=== PATIENT | female | born 1955 | race Caucasian/White ===

== ENCOUNTER → 2018-03-02 13:18 | Outpatient (CLI) | payer BC, SELFPAY ==
--- NOTE | 2018-03-02 13:23 | XR_ITS ---
XR chest 2V HISTORY: ITS.REASON: cough ORDERING PHYSICIAN: Fredi Cordova PATIENT AGE: 62 years COMPARISON: None FINDINGS: The cardiomediastinal silhouette and pulmonary vascularity are within normal limits. There is a 1 cm nodular opacity overlying the left perihilar region. While this could be due to a granuloma or vessel, one cannot exclude the possibility of a developing hilar nodule. Recommend old films for comparison if available. If no old films are available then CT scan of the chest without contrast value. There are degenerative changes in the thoracic spine. No lobar consolidation or collapse. IMPRESSION: 1. 1 cm left perihilar nodular opacity. Consider chest CT for further evaluation if no old films are available. 2. Otherwise negative
== END ==
PROVIDERS: PCP Emergency Medicine; Visit Provider Nurse Practitioner Family
DX: R05 Cough (principal)
CPT/HCPCS: 71046

== ENCOUNTER 2020-08-05 15:36 | Emergency (ER) | payer BC, SELFPAY ==
[2020-08-05 15:37] VITALS: PULSE 87; RESP 16; O2SAT 98; BMI 35.7
[2020-08-05 15:50] VITALS: BP 241/128; PULSE 116; RESP 18; O2SAT 96; BMI 41.5
--- NOTE | 2020-08-05 16:25 | HMH.EDEPIS ---
ED Disposition Clinical Impression: Epistaxis Disposition: Home, Self-Care Condition on Discharge: Good Instructions: DI for Nosebleed Referrals: Daron Duque MD [Primary Care Provider] - - Critical Care Critical Care Time: No Attestation: On 08/05/20, the high probability of a clinically significant, sudden or life threatening deterioration of the following system(s) required my full and direct attention, intervention and personal management. The time I documented below is in addition to time spent performing reported procedures but includes the following listed in this critical care notation. Medical Decision Making - Medical Records Medical records reviewed: Yes: I reviewed the patient's medical records. - Jem Inquiry Pt receiving controlled substance: No Vital Signs: 08/05/20 15:37 08/05/20 15:50 Pulse Rate [Left Brachial] 116 H Pulse Rate [Right] 87 Respiratory Rate 16 18 Blood Pressure [Left Arm] 241/128 H Blood Pressure Mean [Left Arm] 165 Blood Pressure Source [Left Arm] Automatic Cuff Blood Pressure Position [Left Arm] Sitting 02 Sat by Pulse Oximetry 98 96 Oxygen Delivery Method Room Air Room Air Orders (Tests/Meds): ED MEDICATIONS Discontinued Medications Generic Name Dose Route Start Last Admin Trade Name Freq PRN Reason Stop Dose Admin Oxymetazoline HCl 5 ml 08/05/20 15:58 08/05/20 16:32 Oxymetazoline Nasal Norton 0.05% 15ml NS 08/05/20 15:59 1 spray ONCE ONE Administration - Reevaluation(s) Time: 16:51 Reevaluation #1: On reevaluation, the patient is feeling much better. Is been no evidence of rebleeding. I did instruct the patient on what to do if she has bleeding again. Reexamination does not show any posterior bleed or active bleeding. If she is to have any worsening bleeding she is to return the emergency department immediately. Verbalized understanding. Medical Decision Narrative: 64-year-old female presented to the emergency department with epistaxis. Appears to be anterior bleeding. We did clear the patient's naris. Applied Afrin nasal spray. Compression was applied. Patient will be reevaluated. Epistaxis HPI - General Chief complaint: Epistaxis Stated complaint: Nose Bleed Time Seen by Provider: 08/05/20 15:40 Mode of Arrival: Ambulatory Source of Information: Patient Limitations: No Limitations Description of Symptoms (Recalled from ER Triage Doc. by RN): PATIENT C/O NOSE BLEED FROM LEFT NOSTRIL SINCE THIS MORNING. STATES IT HAS BEEN WORSE OVER THE PAST HOUR. ACTIVE BLEEDING FROM NOSE NOTED AT THIS TIME - History of Present Illness HPI Narrative: 64-year-old female presented to the emergency department with a nosebleed. The patient states that she was driving in her car earlier today when she felt her nose started to run. She noticed some bleeding from the left side of her nose. Patient does not take any anticoagulation. She denies any trauma to the nose. She states that she has been blowing her nose lately secondary to some congestion. Denies any headache or change in vision. No focal weakness. Abdominal pain or vomiting. No chest pain or shortness of breath. - Related Data Home Medications Medication Instructions Recorded Confirmed diltiazem HCl 240 mg capsule,24 240 mg PO QAM 12/16/17 06/24/19 hr,extended release trazodone 50 mg tablet 50 mg PO QHS PRN 12/16/17 06/24/19 hydrochlorothiazide 25 mg tablet 25 mg PO DAILY 06/24/19 06/24/19 Allergies Allergy/AdvReac Type Severity Reaction Status Date / Time No Known Allergies Allergy Verified 06/24/19 11:20 [facility] History - Hepatitis A Screen Drug use history?: No High risk sexual behaviors?: No History of sexually transmitted infection?: No Currently employed?: No Childcare worker?: No Do you have indoor plumbing?: Yes Do you have electricity?: Yes Attestation statement:: This patient has been screened for Hepatitis A risk factors. I h
--- NOTE | 2020-08-05 16:47 | PC.NURSE ---
Pt sitting in chair. Nose has stopped bleeding at this time after afrin and pressure. Will continue to monitor
[2020-08-05 17:16] VITALS: BP 190/100; PULSE 100; RESP 18; TEMP 36.6; O2SAT 98
== END 2020-08-05 17:17 | disposition home or self-care (01) ==
LOC: ER 15:43 → UTC 15:45 → ER 15:51
PROVIDERS: Emergency Provider Nurse Practitioner Family; PCP Emergency Medicine
DX: R04.0 Epistaxis (principal)
CPT/HCPCS: 99282

== ENCOUNTER 2021-02-22 16:48 | Emergency (ER) | payer BC, SELFPAY ==
--- NOTE | 2021-02-22 16:45 | ECG_ITS ---
APPROVED REPORT Exam: Resting ECG HR:90 bpm ECG Measurements Heart Rate 90 AXES RI 194 P 44 QRSd 88 QRS 22 QT 390 T 51 QTc 477 Conclusion Normal sinus rhythm Nonspecific T wave abnormality Prolonged QT Abnormal ECG Electronically signed by : Shmuel Montelongo MD 02/23/2021 07:57:06
[2021-02-22 16:49] VITALS: BP 179/91; PULSE 85; RESP 15; TEMP 37.2; O2SAT 96; BMI 36.6
--- NOTE | 2021-02-22 16:59 | XR_ITS ---
PROCEDURE INFORMATION: Exam: XR Chest Exam date and time: 02/22/2021 4:59 PM Age: 65 years old Clinical indication: Pain; Chest pressure; Additional info: Cp TECHNIQUE: Imaging protocol: XR of the chest. Views: 1 view. COMPARISON: CR CXR2V XR chest 2V 03/02/2018 1:28 PM FINDINGS: Lungs: Subtle bibasilar opacities are seen. No focal consolidation. Pleural spaces: Unremarkable. No pleural effusion. No pneumothorax. Heart/Mediastinum: Unremarkable. No cardiomegaly. Bones/joints: Unremarkable. IMPRESSION: Subtle bibasilar opacities could represent inflammation or atelectasis.
--- NOTE | 2021-02-22 17:00 | HMH.EDCP ---
ED Disposition Clinical Impression: Chest pain Qualifiers: Chest pain type: unspecified Qualified Code(s): R07.9 - Chest pain, unspecified Pneumonia Qualifiers: Pneumonia type: due to unspecified organism Laterality: bilateral Disposition: Home, Self-Care Condition on Discharge: Good Instructions: DI for Atypical Chest Pain Additional Instructions: Please follow-up with your primary care physician within the next week. I recommend that you undergo a cardiac stress test. Your work-up today did not show any evidence of heart attack. However, I am unable to determine whether your heart is in healthy condition. Therefore I recommend a stress test. Please return to the emergency department if you do not improve or feel worse. Prescriptions: Azithromycin [Zithromax 250mg tab] 250 mg PO DIRECTED #6 tab Transmission Status: Pending to [facility] #[id number] - Critical Care Critical Care Time: No Attestation: On , the high probability of a clinically significant, sudden or life threatening deterioration of the following system(s) required my full and direct attention, intervention and personal management. The time I documented below is in addition to time spent performing reported procedures but includes the following listed in this critical care notation. Medical Decision Making - Medical Records Medical records reviewed: Yes: I reviewed the patient's medical records. - Jem Inquiry Pt receiving controlled substance: No Vital Signs: 02/22/21 16:49 02/22/21 17:01 Temperature 98.9 F Temperature Source Oral Pulse Rate 86 Pulse Rate [Left Radial] 85 Respiratory Rate 15 20 Blood Pressure 141/80 H Blood Pressure [Right Arm] 179/91 H Blood Pressure Mean 104 Blood Pressure Mean [Right Arm] 120 Blood Pressure Source [Right Arm] Automatic Cuff Blood Pressure Position [Right Arm] Sitting 02 Sat by Pulse Oximetry 96 93 L Oxygen Delivery Method Room Air - Lab Data Lab results reviewed: Yes: I reviewed the patient's lab results. Lab Results 02/22/21 16:50: WBC 11.1 H, RBC 5.23, Hgb 14.5, Hct 42.5, MCV 81.2, MCH 27.7, MCHC 34.2, RDW 14.2, Plt Count 334, MPV 7.7, Neut % (Auto) 70.6, Lymph % (Auto) 21.6, Caldwell % (Auto) 6.1, Eos % (Auto) 1.1, Baso % (Auto) 0.7, Neut # (Auto) 7.8, Lymph # (Auto) 2.4, Caldwell # (Auto) 0.7, Eos # (Auto) 0.1, Baso # (Auto) 0.1 02/22/21 16:50: Sodium 138, Potassium 3.2 L, Chloride 98, Carbon Dioxide 28, Anion Gap 15.2 H, BUN 15, Creatinine 1.20 H, Estimated Creat Clear 75, Estimated GFR 45 L, Est GFR ( Amer) 55 L, Glucose 99, Calcium 9.5, Total Bilirubin 0.6, AST 45 H, ALT 39, Alkaline Phosphatase 109, Troponin I < 0.01, Total Protein 8.3 H, Albumin 4.7, Globulin 3.6 H, Albumin/Globulin Ratio 1.3 Result diagrams: 02/22/21 16:50 02/22/21 16:50 Orders (Tests/Meds): ED MEDICATIONS Discontinued Medications Generic Name Dose Route Start Last Admin Trade Name Freq PRN Reason Stop Dose Admin Aspirin 324 mg 02/22/21 17:02 Aspirin 81mg Chewable Tablet PO 02/22/21 17:03 ONCE ONE ORDERS Category Date Time Status Troponin I Q3H Lab 02/22/21 20:00 Ordered - ECG Data Tracing #1 I reviewed this ECG and interpreted as documented below: The ECG was performed at 1645. It shows a normal sinus rhythm with a rate of 90 bpm. Is artifact present. Flattened T waves in leads III and V2. Otherwise the ECG does not show any acute ischemia or dysrhythmia. The axis are normal. Normal Sinus Rhythm: Yes - JENNIFER Score for Non-Stemi Age of Patient: 60-69 years old Heart Rate: 90-109 bpm Systolic Blood Pressure: 160-199 mmHg Serum Creatinine: 0.80-1.19 mg/dl CHF Killip Class: I-No CHF Other Risk Factors: None Non-Stemi Risk Score: 90 Medical Decision Narrative: The patient presents to the emergency department complaining of intermittent sharp chest pains that last a few seconds at a time. She was worked up for dangerous causes of chest p
[2021-02-22 17:01] VITALS: BP 141/80; PULSE 86; RESP 20; O2SAT 93
[2021-02-22 17:12] LABS: Basophils # 0.1 K/mm3 (0-0.2); Basophils % 0.7 % (0.1-2.0); Chloride 98 mmol/L (98-107); Eosinophils # 0.1 K/mm3 (0.0-0.4); Eosinophils % 1.1 % (0.1-12.0); Hematocrit 42.5 % (37.0-47.0); Hemoglobin 14.5 g/dL (12.2-16.2); Lymphocytes # 2.4 K/mm3 (0.7-4.5); Lymphocytes % 21.6 % (10-50); Mean Corpuscular HGB Conc 34.2 g/dL (31.8-35.4); Mean Corpuscular Hemoglobin 27.7 pg (27.0-31.2); Mean Corpuscular Volume 81.2 fl (81-99); Mean Platelet Volume 7.7 fl (7.4-10.4); Monocytes # 0.7 K/mm3 (0.1-1.0); Monocytes % 6.1 % (1.7-9.3); Neutrophils # 7.8 K/mm3 (1.8-7.8); Neutrophils % 70.6 % (37.0-80.0); Platelet Count 334 K/mm3 (142-424); Red Blood Count 5.23 M/mm3 (4.20-5.40); Red Cell Distribution Width 14.2 % (11.5-17.5); White Blood Count 11.1 K/mm3 (4.8-10.8)
[2021-02-22 17:13] LABS: Potassium 3.2 mmoL/L (3.5-5.1); Sodium 138 mmol/L (136-145)
[2021-02-22 17:15] LABS: Alanine Aminotransferase 39 U/L (12-78); Aspartate Amino Transferase 45 U/L (14-36); Blood Urea Nitrogen 15 mg/dl (7-17); Creatinine Clearance Estimated 75 mL/min (50-200); Estimated Glomerular Filt Rate 45 ml/min (>60); GFR (African American) 55 ML/MIN (>60)
[2021-02-22 17:16] LABS: Albumin Level 4.7 g/dl (3.5-5.0); Albumin/Globulin Ratio 1.3 (1.1-1.8); Alkaline Phosphatase 109 U/L (38-126); Anion Gap 15.2 mEq/L (5-15); Bilirubin,Total 0.6 mg/dl (0.2-1.3); Calcium 9.5 mg/dl (8.4-10.2); Carbon Dioxide 28 mmol/L (22.0-30.0); Globulin 3.6 g/dL (1.3-3.2); Glucose 99 mg/dl (74-100); Total Protein,Serum 8.3 g/dl (6.3-8.2)
[2021-02-22 17:29] LABS: Troponin I < 0.01 ng/ml (0.00-0.034)
[2021-02-22 18:39] VITALS: BP 124/78; PULSE 74; RESP 16; TEMP 36.6; O2SAT 98
== END 2021-02-22 18:43 | disposition home or self-care (01) ==
PROVIDERS: Emergency Provider Emergency Medicine; PCP Nurse Practitioner Family
DX: J18.9 Pneumonia, unspecified organism (principal); I10 Essential (primary) hypertension
CPT/HCPCS: 71045; 80053; 84484; 85025; 93005; 99282

== ENCOUNTER → 2021-06-04 12:14 | Outpatient (CLI) | payer BC, SELFPAY | PROVIDERS: PCP Nurse Practitioner Family; Visit Provider Nurse Practitioner Family | DX: G47.33 Obstructive sleep apnea (adult) (pediatric) (principal); R06.83 Snoring | CPT/HCPCS: G0399 ==

== ENCOUNTER → 2022-04-16 06:50 | Outpatient (CLI) | payer BC, SELFPAY ==
--- NOTE | 2022-04-16 | CA_ITS ---
APPROVED REPORT Exam: Pharmacologic Technologist: Catalina Meyers, Ht: 5 ft 5 in Wt: 218 lbs BSA: 2.05 m2 HR: 70 bpm BP: 151/82 mmHg Medical History Medications: Trazadone,,,,, HCTZ,,,,, DilTiazem,,,,, OmPEprazole,,,,, Stress Test Details Test: LEXISCAN Reason for pharmacologic stress test: physical limitation. HR Resting HR: 75 bpm Max Heart Rate (APMHR): 155.106697 bpm Max HR Achieved: 103 bpm Target HR (85% APMHR): 131.014077 bpm % of APMHR: 66.45 Recovery HR: 79 bpm BP Resting BP: 151/82 mmHg Max BP: 174/78 mmHg Recovery BP: 165.0/86.0 mmHg ECG Resting ECG: NSR, 1*NORTH Clinical Exercise duration: 04:01 min Highest Stage Achieved: Exercise capacity: 1.0 METs Stress ECG Conclusion Symptoms: Head discomfort, malaise, mild SOA. No CP. Arrhythmias/Ectopy: None ST-T Changes: NS ST-T changes. Conclusion: Unremarkable Lexiscan stress. Myoview images reported separately. Electronically signed by : Matthew Thorne MD 04/16/2022 19:03:43
--- NOTE | 2022-04-16 07:28 | NM_ITS ---
APPROVED REPORT Exam: Nuclear Stress Test Indication: HTN, FM HX., C.P., ABN EKG Patient Location: Outpatient Stress Tech: Catalina Shelley [place] Tech:Sandra Sarkar ARRT RT (R)(N)(M) Ht: 5 ft 5 in Wt: 218 lbs Bra Size: 40C HR: 70 bpm BP: 151/82 mmHg BSA: 2.05 m2 TID: 1.14 BMI: 36.2 History: HTN, FM HX., C.P., ABN EKG Procedure: Patient received a 0.4 mg of intravenous Lexiscan, resting heart rate 70 bpm, resting blood pressure 151/82 mmHg, with Lexiscan maximum heart rate achived was 95 bpm which is Less than 85 % of the maximum predicted heart rate and blood pressure was 171/89 mmHg. With Lexiscan, patient denied any complaint of chest pain. Electrocardiogram Resting electrocardiogram shows sinus rhythm first-degree AV block, with Lexiscan there is less than 1.[address] segment depression noted from the baseline EKG. The EKG portion of the Lexiscan is nondiagnostic. Cardiac Stress and Resting SPECT Images: Cardiac Stress and Resting SPECT images were obtained using technetium 99m Myoview 32.8 mCi stress and 10.58 mCi at rest. Gated SPECT for analysis of segmental wall motion and calculation of the ejection fraction also done. Prone images were also obtained. Cardiac stress and rest SPECT images show uniform myocardial activity without segmental perfusion abnormality, computer derived ejection fraction is over 65% with no regional wall motion abnormality, right ventricle is normal size and contractility. Conclusion: 1. The EKG portion of the Lexiscan is nondiagnostic. 2. No scintigraphic evidence of reversible ischemia seen, compared to ejection fraction over 65% with no regional wall motion abnormality, right ventricle is normal size and contractility. 3. Normal Lexiscan Myoview study. Electronically signed by : Matthew Thorne MD 04/16/2022 19:05:46
--- NOTE | 2022-04-16 08:27 | HMH.ITSHM ---
Current Home Medications as stated by this patient Colleen Cleaning or customer engagement representative. []TRAZODONE HCTZ DILTIAZEM
--- NOTE | 2022-04-16 09:25 | XR_ITS ---
FINAL REPORT TECHNIQUE: Bone mineral density was calculated of the lumbar spine and hip. CLINICAL HISTORY: osteoporosis FINDINGS: DEXA BONE DENSITY AXIAL SKELETON Using L1-4, the bone mineral density of the spine is 1.207 g/cm2, corresponding to T-score of 1.5. Using the left hip, the bone mineral density of the femoral neck is 0.833 g/cm2, corresponding to a T-score of -0.1. NOTE: T-score: Standard deviation compared with peak bone mass of young adult mean. *Following the recommendations of the International Society of Bone densitometry, classification of hip BMD is based on the lower of two T-scores; total hip or femoral neck. IMPRESSION: Normal bone mineral density of the lumbar spine and hip. FRAX not reported because: All T-scores for spine total, hip total, femoral neck at or above -1.0. Reviewed, Interpreted and Dictated by Samantha Alvarez MD Transcribed by Princess Moreno Authenticated and [facility]
== END ==
PROVIDERS: PCP Nurse Practitioner Family; Visit Provider Nurse Practitioner Family
DX: R07.9 Chest pain, unspecified (principal); M81.0 Age-related osteoporosis without current pathological fracture
CPT/HCPCS: 77080; 78452; 93017; A9502; J2785

== ENCOUNTER 2022-06-16 20:56 | Emergency (ER) | payer BC, SELFPAY ==
[2022-06-16 20:57] VITALS: BP 172/86; PULSE 76; RESP 18; TEMP 36.4; O2SAT 100; BMI 36.8
--- NOTE | 2022-06-16 22:40 | CT_ITS ---
PROCEDURE INFORMATION: Exam: CT Abdomen And Pelvis With Contrast Exam date and time: 06/16/2022 11:19 PM Age: 66 years old Clinical indication: Abdominal pain; Generalized; Patient HX: Abd pain with vomiting TECHNIQUE: Imaging protocol: Computed tomography of the abdomen and pelvis with contrast. Radiation optimization: All CT scans at this facility use at least one of these dose optimization techniques: automated exposure control; mA and/or kV adjustment per patient size (includes targeted exams where dose is matched to clinical indication); or iterative reconstruction. Contrast material: ISOVUE; Contrast volume: 75 ml; Contrast route: IV; COMPARISON: CR XR CHEST PORTABLE 02/22/2021 5:14 PM FINDINGS: Lungs: There are several calcified granuloma at the right lung base. Liver: Normal. No mass. Gallbladder and bile ducts: There is gallbladder wall thickening and surrounding inflammation. No calcified gallstones are noted. There is no biliary ductal dilation. Pancreas: Normal. No ductal dilation. Spleen: Normal. No splenomegaly. Adrenal glands: Normal. No mass. Kidneys and ureters: Normal. No hydronephrosis. 41 mm cortical cyst lower pole left kidney. Stomach and bowel: Diffuse diverticulosis is present without inflammation. Appendix: No evidence of appendicitis. Intraperitoneal space: Unremarkable. No free air. No significant fluid collection. Vasculature: There is mild calcific atherosclerotic disease. There is no abdominal aortic aneurysm. Lymph nodes: Unremarkable. No enlarged lymph nodes. Urinary bladder: Unremarkable as visualized. Reproductive: Unremarkable as visualized. Bones/joints: Mild L1 compression deformity which is likely old. Soft tissues: Unremarkable. IMPRESSION: 1. Acute cholecystitis. No calcified gallstones are evident. There is no biliary ductal dilation. 2. Other findings as detailed. COMMENTS: Consistent with the [employer]'s Incidental Findings Committee white paper (J Am Han Radiol 2018): Any incidental renal lesion less than 1 cm or classified as too small to characterize, or any incidental cystic renal lesion characterized as simple-appearing, is likely benign. No follow-up imaging is recommended for these lesions per consensus recommendations based on imaging criteria.
--- NOTE | 2022-06-16 22:55 | HMH.EDABDPAI ---
Discharge Plan Disposition Patient Disposition: Home, Self-Care Prescriptions Prescriptions: New metronidazole 500 mg Tablet 500 mg PO TID Qty: 20 0RF levofloxacin 500 mg tablet 500 mg PO DAILY Qty: 7 0RF No Action hydrochlorothiazide 25 mg tablet 25 mg PO DAILY diltiazem HCl 240 mg capsule,extended release 24 hr 240 mg PO QAM trazodone 50 mg tablet 50 mg PO QHS PRN azithromycin 250 MG tablet 250 mg PO DIRECTED Qty: 6 0RF Rx Instructions: Take two (2) tablets on day #1, then one (1) tablet day #2 thru #5 Referrals Follow up/Referrals: Alysha Mcnair [Primary Care Provider] - See instructions Alonzo Rachel MD [Staff Physician] - See instructions Clinical Impressions Clinical Impression: Acute cholecystitis Instructions Patient Instructions: DI for Cholecystitis Discharge ED Provider: Daron Duque Abdominal Pain HPI General Chief Complaint: Abdominal Pain Stated Complaint: right side adm pain Time Seen by Provider: 06/16/22 22:55 Mode of Arrival: Ambulatory Source of Information: Patient and Medical Record Limitations: No Limitations Description of Symptoms (Recalled from ER Triage Doc. by RN): pt states that she had abdominal pain about to that it made her vomit the pain is now 4/10 on the pain scale History of Present Illness HPI narrative: abd pain today on rt with nausea w/o fever or rash complaint: abdominal pain Onset (ago): hour(s) Consistency: intermittent Location: RUQ Severity: moderate Quality: stabbing Associated symptoms: denies other symptoms Related Data Home Medications Medication Instructions Recorded Confirmed diltiazem HCl 240 mg capsule,24 240 mg PO QAM 12/16/17 06/24/19 hr,extended release trazodone 50 mg tablet 50 mg PO QHS PRN 12/16/17 06/24/19 hydrochlorothiazide 25 mg tablet 25 mg PO DAILY 06/24/19 06/24/19 Previous Rx's Medication Instructions Recorded azithromycin 250 mg tablet 250 mg PO DIRECTED #6 tabs 02/22/21 levofloxacin 500 mg tablet 500 mg PO DAILY #7 tabs 06/16/22 metronidazole 500 mg tablet 500 mg PO TID #20 tabs 06/16/22 Allergies Allergy/AdvReac Type Severity Reaction Status Date / Time No Known Allergies Allergy Verified 06/24/19 11:20 PFSH PFS Medical History (Updated 06/16/22 @ 23:57 by Daron Duque MD) Rash and nonspecific skin eruption Social History Smoking Status: Never smoker alcohol intake: never substance use type: denies use current occupational status: other Travel in the last 8 weeks: None household members: family housing: house ROS Obtained: Yes All systems reviewed & no additional complaints except as documented Physical Exam General General appearance: alert Head Head exam: normocephalic Eye Eye exam: Present PERRL and EOMI; Absent jaundice ENT ENT exam: Present mucous membranes moist Neck Neck exam: Present trachea midline Respiratory Respiratory exam: Present normal lung sounds bilaterally; Absent respiratory distress Cardiovascular Cardiovascular exam: Present regular rate Abdominal Exam Abdominal exam: Present soft, tenderness and Doe's sign Abdominal tenderness: Present RUQ and moderate Extremities Exam Extremities exam: Present full ROM Back Exam Back exam: Absent CVA tenderness (R) Neurological Exam Neurological exam: Present alert, oriented X3 and CN II-XII intact Psychiatric Psychiatric exam: Present normal affect Skin Skin exam: Absent rash Medical Decision Making Medical Records Medical records reviewed: Yes I reviewed the patient's medical records. Jem Inquiry Pt receiving controlled substance: No Vital Signs: 06/16/22 20:57 Temperature 97.6 F Temperature Source Oral Pulse Rate [Left] 76 Respiratory Rate 18 Blood Pressure [Right Arm] 172/86 H Blood Pressure Mean [Right Arm] 114 02 Sat by Pulse Oximetry 100 Oxygen Delivery Method Room Air Lab Data Lab results reviewed: Brendan
[2022-06-16 22:58] LABS: Chloride 100 mmol/L (98-107); Potassium 4.1 mmoL/L (3.5-5.1); Sodium 140 mmol/L (136-145)
[2022-06-16 23:01] LABS: Alanine Aminotransferase 45 U/L (12-78); Albumin Level 4.3 g/dl (3.5-5.0); Alkaline Phosphatase 119 U/L (38-126); Amylase 57 U/L (30-110); Anion Gap 13.1 mEq/L (5-15); Aspartate Amino Transferase 52 U/L (14-36); Bilirubin,Total 0.4 mg/dl (0.2-1.3); Blood Urea Nitrogen 13 mg/dl (7-17); Calcium 9.5 mg/dl (8.4-10.2); Carbon Dioxide 31 mmol/L (22.0-30.0); Creatinine Clearance Estimated 86 mL/min (50-200); Estimated Glomerular Filt Rate 72 ml/min (>60); GFR (African American) 87 ML/MIN (>60); Glucose 147 mg/dl (74-100); Lipase 49 U/L (23-300)
[2022-06-16 23:02] LABS: Albumin/Globulin Ratio 1.3 (1.1-1.8); Globulin 3.2 g/dL (1.3-3.2); Total Protein,Serum 7.5 g/dl (6.3-8.2)
[2022-06-16 23:06] LABS: Basophils # 0.2 K/mm3 (0-0.2); Basophils % 1.3 % (0.1-2.0); Eosinophils # 0.1 K/mm3 (0.0-0.4); Eosinophils % 0.5 % (0.1-12.0); Hematocrit 43.3 % (37.0-47.0); Hemoglobin 13.8 g/dL (12.2-16.2); Lymphocytes # 0.8 K/mm3 (0.7-4.5); Lymphocytes % 6.2 % (10-50); Mean Corpuscular HGB Conc 31.8 g/dL (31.8-35.4); Monocytes # 0.3 K/mm3 (0.1-1.0); Monocytes % 2.3 % (1.7-9.3); Neutrophils # 11.2 K/mm3 (1.8-7.8); Neutrophils % 89.7 % (37.0-80.0); Platelet Count 333 K/mm3 (142-424); Red Cell Distribution Width 14.7 % (11.5-17.5); White Blood Count 12.5 K/mm3 (4.8-10.8)
[2022-06-16 23:11] LABS: MANUAL DIFFERENTIAL MANUAL DIFFERENTIAL (MANUAL DIFF)
[2022-06-16 23:30] LABS: Lymphocytes % 16 % (10-50); Monocytes % 1 % (2-9); Neutrophils % 83 % (42-76); Platelet Estimate Normal; RBC Morphology Normal; Total Cells Counted 100
[2022-06-16 23:37] LABS: Microscopic, Urine URINE MICROSCOPIC (MICROSCOPIC)
[2022-06-16 23:40] LABS: Appearance,Urine CLEAR (Clear); Bilirubin,Urine Negative (Negative); Blood, Urine Negative (Negative); Color,Urine YELLOW (Yellow); Glucose,Urine (UA) Negative (Negative); Ketones,Urine Negative (Negative); Leukocyte Esterase,Urine Negative (Negative); Nitrate,Urine Negative (Negative); Protein,Urine Negative (Negative); Urobilinogen,Urine 0.2 EU/dl (0.2)
[2022-06-17 00:07] LABS: WBC,Urine Occasional #/hpf (0-3)
[2022-06-17 00:13] VITALS: BP 160/68; PULSE 72; RESP 18; TEMP 36.6; O2SAT 99
== END 2022-06-17 00:16 | disposition home or self-care (01) ==
PROVIDERS: Emergency Provider Emergency Medicine; PCP Nurse Practitioner Family
DX: K81.0 Acute cholecystitis (principal)
CPT/HCPCS: 74177; 80053; 81001; 82150; 83690; 85007; 85025; 96374; 96375; 99284; J2405; Q9967

== ENCOUNTER → 2022-06-20 07:51 | Outpatient (CLI) | payer BC, SELFPAY ==
--- NOTE | 2022-06-20 07:51 | US_ITS ---
FINAL REPORT CLINICAL HISTORY: Right upper quad pain FINDINGS: RIGHT UPPER QUADRANT ULTRASOUND Sonographic images of the right upper quadrant were obtained. The pancreas is partially obscured. There is fatty infiltration of the liver. There sludge in the gallbladder. Gallbladder wall is thickened measuring 5 mm but this may be accentuated by incomplete distension. The common duct is normal. Limited images of the right kidney are normal. IMPRESSION: Gallbladder wall thickening and sludge. Please correlate with clinical symptoms. Reviewed, Interpreted and Dictated by Migue Richardson MD Transcribed by Hoa Moctezuma Authenticated and [facility]
== END ==
PROVIDERS: PCP Nurse Practitioner Family; Visit Provider Surgery
DX: K81.0 Acute cholecystitis (principal)
CPT/HCPCS: 76705

== ENCOUNTER → 2022-06-24 09:17 | Outpatient (CLI) | payer BC, SELFPAY ==
--- NOTE | 2022-06-24 09:20 | XR_ITS ---
FINAL REPORT CLINICAL HISTORY: pre op..HIGH BLOOD PRESSURE COMPARISON: 02/22/2021 FINDINGS: TWO-VIEW CHEST The heart size is normal. The mediastinum is normal. There are mild left base opacities, may represent atelectasis or scar. There is no pneumothorax. IMPRESSION: Left base atelectasis or scar. Reviewed, Interpreted and Dictated by Alonzo Wells III, MD Transcribed by Hoa Moctezuma Authenticated and [facility]
== END ==
PROVIDERS: PCP Nurse Practitioner Family; Visit Provider Surgery
DX: Z01.818 Encounter for other preprocedural examination (principal); K81.0 Acute cholecystitis
CPT/HCPCS: 71046

== ENCOUNTER 2022-06-30 07:38 | Day surgery (SDC) | payer BC, SELFPAY ==
[2022-06-26 12:38] VITALS: BMI 53.1
[2022-06-30] VITALS (17 sets, daily range): BP systolic 109–149; BP diastolic 53–82; PULSE 50–84; RESP 12–20; TEMP 36.3–43; O2SAT 91–100
--- NOTE | 2022-06-30 08:38 | P.PN_ITS ---
[facility] Disclaimer: The information contained in this section may have been updated after the patient was seen, as this information can be updated by other users. Medical History Bronchitis Rash and nonspecific skin eruption Surgical History History of section History of colonoscopy History of tonsillectomy Family History Other Family history of COPD (chronic obstructive pulmonary disease) Social History Smoking Status: Never smoker alcohol intake: current substance use type: denies use current occupational status: other Travel in the last 8 weeks: None household members: family housing: house [facility] Anesthesia Checklist Patient Identification Patient Identification: Arm Band and Verbal (Name & ) Structural Data Admitted From: Home Planned Operative Procedure/s: Kandis. alycia Consent for Planned Operative Procedure(s) Verified: Yes NPO Status Verified Time NPO: 00:00 Chart Verification Results Verified: CBC and BMP Additional verifications Anesthesia Reactions: No Hx Blood Transfusions: No Blood Transfusion Reaction: No Airway Assessment C-Spine Mobility Assessed: Yes TMJ Mobility Assessed: Yes Dentition: Good Dentition Neurological Assessment Level of Consciousness: Awake Hx Seizures: No Numbness or tingling in extremities: No Anesthesia Plan Anesthesia Risk discussed: Yes Anesthesia Plan: Verified ASA Class: III Anesthesia Type: General
--- NOTE | 2022-06-30 10:13 | EXP.OP.NOTE ---
Date of procedure: 06/30/22 Pre-op Diagnosis:: Cholecystitis Post-op Diagnosis:: Same Procedure performed:: Laparoscopic cholecystectomy Surgeon:: Alonzo Rachel MD ENVIRONMENTAL HEALTH AIDE:: Khang Victor Anesthesia: JONNATHAN Estimated blood loss (mL): 25 Clinical Note:: Patient presents for cholecystectomy. She is a 66-year-old female referred by the emergency department for gallbladder and seen in the office on 06/24/2022.? She states that about 3 months ago she was undergoing routine blood work and noted to have an elevated C-reactive protein.? She has seen a sex therapist and has undergone a thorough work-up.? She states that several months ago upon returning from rheumatology appointment she had some back pain which resolved after 2 hours.? However on 06/16/2022 she had recurrent symptoms and at this time it was unrelenting for some time.? She has pain in the back and across the upper abdomen.? She had associated nausea and vomiting.? Evaluation in the emergency department included CT scan which revealed findings of acute cholecystitis.? No calcified gallstones are evident.? There is no biliary ductal dilatation. ? She was managed as an outpatient and set up for surgical evaluation.? She had a gallbladder ultrasound performed which reveals gallbladder wall thickening and sludge.? She has been on levofloxacin and metronidazole.? She has had some muscle aches and nausea.? She has previously had via low midline incision. Operative findings:: She had evidence of some hepatomegaly. Gallbladder was distended and obscured with omental adhesions. Gallbladder was not significantly thickened. There appeared to be tiny gallstones in the neck of the gallbladder and proximal cystic duct which were able to be manipulated back into the lumen of the gallbladder. Operative note:: Patient was taken to the operating room. She was given preoperative intravenous antibiotics. She was positioned in supine position. General anesthesia was induced via endotracheal tube. Abdomen was prepped and draped in the standard surgical fashion. Due to the significant scarring from repeat low midline incision for C-sections 5 mm incision was made in the left subcostal area and 5 mm optical trocar was inserted under laparoscopic visualization. CO2 pneumoperitoneum was achieved to 15 mmHg. Abdominal surveillance revealed no adhesions posterior to the umbilicus. 11 mm trocar was then inserted at the umbilical area. Patient was positioned in reverse Trendelenburg left side down. A couple of 5 mm trochars were inserted in the right upper abdomen and 10 mm trocar was inserted in the epigastrium. She had some evidence of hepatomegaly. The liver was elevated and gallbladder was identified. It was mostly obscured with omental adhesions. Gallbladder was grasped retracted anteriorly and superiorly over the dome of the liver. Adhesions to the gallbladder were taken down using blunt dissection with some limited use of ERMA ultrasonic harmonic yuan. There was some minimal unavoidable spillage of bile from the gallbladder due to its friability high on the fundus of the gallbladder. 0 PDS Endoloop was placed on the gallbladder body at the fundus. Careful dissection was carried out the neck of the gallbladder. Ultimately cystic duct and cystic artery were clearly identified and isolated. It appears that she may have had a stone or 2 in the neck of the gallbladder at the proximal cystic duct. These were able to be manipulated back into the body of the gallbladder. Cystic duct was then multiply clipped and then sharply divided. Cystic artery was carefully coagulated with ERMA ultrasonic harmonic yuan and divided. Gallbladder was dissected free from the liver in a retrograde fashion using ERMA ultrasonic harmonic yuan. Gallbladder was placed within an Endo Catch retrieval device removed from the peritoneal cavity via the umbilical trocar site. Gallbladder fossa and then perihepatic space was thoroughly
--- NOTE | 2022-06-30 10:17 | EXP.ANES.I ---
[facility] Anesthesia Record Part I Anesthesia Record I Intake, IV Amount: 950 Estimated blood loss (mL): 25 Urine output (mL): 0 Blood Pressure: 149/82 SaO2: 92 Pulse Rate: 84 Respiratory Rate: 12 Temperature: 98.9 F Patient is:: Drowsy and Oral/Nasal airway Stable to PACU at:: 10:15
--- NOTE | 2022-06-30 11:18 | SUR.PHASEI ---
1100 called and gave detailed report to Jinny Escamilla RN [id number] transported via stretcher to post op. vital signs stable. rates pain at a level 1. left in stable condition with Jinny Escamilla RN at bedside.
--- NOTE | 2022-07-01 07:59 | P.PNANES_ITS ---
[facility] Anesthesia Record Part II Anesthesia Record Part II Discharge Time: 10:45 Destination: Outpatient Procedures PACU nurse assessment reviewed?: Yes Patient Condition:: Good Anesthesia Complications:: None Swallowing reflex intact?: Yes Cyanosis?: No Blood Pressure: 137/64 Pulse Rate: 69 Temperature: 97.4 F Mental Status: Alert & Oriented Pain level:: 3 Nausea and/or vomitting:: None Intake, IV Amount: 1,000
[2022-07-01 08:01] VITALS: BP 137/64; PULSE 69; TEMP 36.3
== END 2022-06-30 12:50 | disposition home or self-care (01) ==
PROVIDERS: PCP Nurse Practitioner Family; Visit Provider Surgery
PROC: 0FT44ZZ Resection of Gallbladder, Percutaneous Endoscopic Approach (ICD-10-PCS; CPT 47562; principal; 2022-06-30 10:00)
DX: R16.0 Hepatomegaly, not elsewhere classified; Z79.899 Other long term (current) drug therapy; N80.03 Adenomyosis of the uterus; K80.10 Calculus of gallbladder with chronic cholecystitis without obstruction
CPT/HCPCS: 47562; 88304; J2405

== ENCOUNTER → 2022-07-15 10:17 | Outpatient (CLI) | payer BC, SELFPAY ==
[2022-07-15 10:41] LABS: Basophils # 0.1 K/mm3 (0-0.2); Basophils % 0.8 % (0.1-2.0); Eosinophils # 0.2 K/mm3 (0.0-0.4); Eosinophils % 1.8 % (0.1-12.0); Hematocrit 39.6 % (37.0-47.0); Hemoglobin 12.9 g/dL (12.2-16.2); Lymphocytes # 1.7 K/mm3 (0.7-4.5); Lymphocytes % 18.8 % (10-50); Mean Corpuscular HGB Conc 32.5 g/dL (31.8-35.4); Mean Corpuscular Hemoglobin 27.3 pg (27.0-31.2); Mean Corpuscular Volume 83.9 fl (81-99); Mean Platelet Volume 7.8 fl (7.4-10.4); Monocytes # 0.3 K/mm3 (0.1-1.0); Monocytes % 3.6 % (1.7-9.3); Neutrophils % 75.1 % (37.0-80.0); Platelet Count 294 K/mm3 (142-424); Red Blood Count 4.72 M/mm3 (4.20-5.40); Red Cell Distribution Width 14.9 % (11.5-17.5); White Blood Count 9.3 K/mm3 (4.8-10.8)
[2022-07-15 10:50] LABS: Chloride 105 mmol/L (98-107); Potassium 3.9 mmoL/L (3.5-5.1); Sodium 143 mmol/L (136-145)
[2022-07-15 10:52] LABS: Amylase 58 U/L (30-110); Blood Urea Nitrogen 11 mg/dl (7-17); Estimated Glomerular Filt Rate 63 ml/min (>60)
[2022-07-15 10:53] LABS: Alanine Aminotransferase 27 U/L (12-78); Albumin Level 3.9 g/dl (3.5-5.0); Albumin/Globulin Ratio 1.3 (1.1-1.8); Alkaline Phosphatase 86 U/L (38-126); Anion Gap 9.9 mEq/L (5-15); Aspartate Amino Transferase 29 U/L (14-36); Bilirubin,Total 0.4 mg/dl (0.2-1.3); Calcium 10.3 mg/dl (8.4-10.2); Carbon Dioxide 32 mmol/L (22.0-30.0); GFR (African American) 76 ML/MIN (>60); Globulin 2.9 g/dL (1.3-3.2); Glucose 100 mg/dl (74-100); Lipase 68 U/L (23-300); Total Protein,Serum 6.8 g/dl (6.3-8.2)
--- NOTE | 2022-07-15 12:20 | CT_ITS ---
FINAL REPORT CLINICAL HISTORY: abdominal pain COMPARISON: 06/16/2022 FINDINGS: CT OF THE ABDOMEN AND PELVIS WITH CONTRAST Axial CT images of the abdomen and pelvis were obtained after the administration of oral and iv contrast. Coronal reformatted images were also obtained and reviewed.This study was performed with techniques to keep radiation doses as low as reasonably achievable (ALARA). Individualized dose reduction techniques using automated exposure control or adjustment of mA and/or kV according to the patient's size were employed. Abdomen: There is mild scarring in the lung bases.. The heart is normal in size. The liver is unremarkable. The patient is status post cholecystectomy. There is no evidence of biliary ductal dilatation. The spleen is unremarkable. No adrenal mass is present. The pancreas has an unremarkable appearance. There is a stable 41 mm cyst in the lower pole of the left kidney. The aorta is normal in caliber. There is no free fluid or adenopathy. Pelvis: The appendix normal. There is bladder wall thickening, likely inflammatory. There is no evidence of mass or adenopathy. There is no evidence of bowel obstruction. IMPRESSION: Bladder wall thickening, likely inflammatory. Reviewed, Interpreted and Dictated by Alonzo Wells III, MD Transcribed by Hoa Moctezuma Authenticated and [facility]
== END ==
PROVIDERS: PCP Nurse Practitioner Family; Visit Provider Surgery
DX: Z01.812 Encounter for preprocedural laboratory examination (principal); K81.0 Acute cholecystitis
CPT/HCPCS: 36415; 74177; 80053; 82150; 83690; 85025; Q9967